=== PATIENT | female | born 1965 | race Hispanic/Latino ===

== ENCOUNTER 2017-09-24 00:57 | Observation (INO) | payer BC ==
[2017-09-24 01:23] LABS: #Eosinphils 0.1 thou/uL (0.0-0.7); #Monocytes 0.3 thou/uL (0.11-0.59); #Neutrophils 2.9 thou/uL (1.40-6.50); %Basophils 0.8 % (0.0-1.0); %Lymphocytes 47.3 % (21.0-51.0); %Monocytes 4.6 % (0.0-10.0); %Neutrophils 45.3 % (42.0-75.0); Hemoglobin 14.5 g/dL (12.0-16.0); Mean Corpuscular HGB CONC 34.7 g/dL (32.0-36.0); Mean Corpuscular Hemoglobin 29.9 pg (27.0-31.0); Mean Corpuscular Volume 86.2 fL (78.0-98.0); Mean Platelet Volume 7.1 fL (7.4-10.4); Platelet Count 276 thou/uL (130-400); RBC Distribution Width 11.9 % (11.5-14.5); Red Blood Cell (RBC) Count 4.84 mill/uL (4.20-5.40); White Blood Cell (WBC) Count 6.4 thou/uL (4.8-10.8)
[2017-09-24 01:39] LABS: ALT (SGPT) 26 U/L (8-55); AST (SGOT) 19 U/L (5-34); Albumin 4.3 g/dL (3.5-5.0); Alkaline Phosphatase 131 U/L (40-150); Anion Gap 15 mmol/L (10-20); BUN (Urea Nitrogen) 12 mg/dL (9.8-20.1); Bilirubin, Total 0.5 mg/dL (0.2-1.2); CK (CPK) 66 U/L (29-168); Calc. Creatinine Clearance 0 mL/min (70-130); Calcium 8.9 mg/dL (7.8-10.44); Carbon Dioxide 23 mmol/L (22-29); Chloride 105 mmol/L (98-107); Estimated GFR-MDRD 75; Globulin 4.1 g/dL (2.4-3.5); Glucose 382 mg/dL (70-105); Protein, Total 8.4 g/dL (6.0-8.3); Sodium 139 mmol/L (136-145)
[2017-09-24 01:43] LABS: Troponin I Less than 0.010 ng/mL (< 0.028)
[2017-09-24] MEDS ORDERED: Nitroglycerin 2% Ointment 1 INCH/1 GM Packet ONE (01:44)
[2017-09-24] MEDS ORDERED: Ondansetron ODT 4 MG TAB SL PRN (03:44)
[2017-09-24] MEDS ORDERED: Sodium Chloride 0.9% 1,000 ML IV SCH (03:44)
[2017-09-24] MEDS ORDERED: Acetaminophen 325 MG TAB PO PRN ×2 (03:44→06:43)
[2017-09-24] MEDS ORDERED: Ondansetron HCl/PF 4 MG/2 ML Vial IVP PRN ×2 (03:44→06:43)
[2017-09-24 04:35] VITALS: BMI 40.3
[2017-09-24 05:57] LABS: Troponin I Less than 0.010 ng/mL (< 0.028)
[2017-09-24] MEDS ORDERED: Ondansetron ODT 4 MG TAB PO PRN (06:43)
[2017-09-24] MEDS ORDERED: Loperamide HCl 2 MG CAP PO PRN (06:43)
[2017-09-24] MEDS ORDERED: HumaLOG 300 UNITS/3 ML VIAL SC PRN ×2 (06:43)
[2017-09-24] MEDS ORDERED: Milk Of Magnesia 30 ML UDCUP PO PRN (06:43)
[2017-09-24] MEDS ORDERED: Mag-Al 1200 mg/1200 mg/30 ML UDCUP PO PRN (06:43)
[2017-09-24] MEDS ORDERED: Zolpidem Tartrate 5 MG TAB PO PRN (06:43)
[2017-09-24] MEDS ORDERED: Senokot 8.6 MG TAB PO PRN (06:43)
[2017-09-24] MEDS ORDERED: HYDROcodone/Acetaminophen 5/325 mg Tablet PO PRN (06:43)
[2017-09-24] MEDS ORDERED: Dextrose 5% in Water 1,000 ML IV PRN (06:43)
[2017-09-24] MEDS ORDERED: Dextrose 50% Abboject 50 ML SYRINGE SLOW IVP PRN (06:43)
[2017-09-24] MEDS ORDERED: Chloraseptic Spray 180 ml Bottle PO PRN (06:45)
[2017-09-24] MEDS ORDERED: Sodium Chloride 0.65% Nasal 44 ML BOT EA NARE PRN (06:45)
[2017-09-24] MEDS ORDERED: Loratadine 10 MG TAB PO PRN (06:45)
[2017-09-24] MEDS ORDERED: Diabetic Tussin 200 MG/10 ML UDCUP PO PRN (06:45)
[2017-09-24] MEDS ORDERED: Artificial Tears 18 DROP/0.9 ML EA EYE PRN (06:45)
[2017-09-24] MEDS ORDERED: hydrALAZINE 20 MG/ML VIAL SLOW IVP PRN (06:45)
[2017-09-24] MEDS ORDERED: Nitroglycerin 0.4 MG TAB (25 Tab Bottle) SL PRN (06:45)
[2017-09-24] MEDS ORDERED: Eucerin (Mineral Oil/Petrolatum,White) 30 gm Jar TOP PRN (06:45)
--- NOTE | 2017-09-24 08:10 | RAD ---
SINGLE VIEW CHEST: Date: 09/24/17 COMPARISON: None. HISTORY: Chest pain that started 3 days ago. FINDINGS: Single view of the chest shows a normal sized cardiomediastinal silhouette. There is no evidence of c onsolidation, mass, or pleural effusion. The bones are unremarkable. IMPRESSION: No evidence of acute cardiopulmonary disease. POS: [facility]
[2017-09-24 08:24] LABS: Cardiac Risk 4.5 (Less than 4.5)
[2017-09-24 08:27] LABS: Troponin I Less than 0.010 ng/mL (< 0.028)
[2017-09-24] MEDS ORDERED: glipiZIDE 10 MG TAB PO SCH (09:00)
[2017-09-24] MEDS ORDERED: INSULIN GLARGINE HUM REC ANLOG 25 UNIT SC SCH (09:00)
[2017-09-24] MEDS ORDERED: metFORMIN 500 MG TAB PO SCH (09:00)
[2017-09-24] MEDS ORDERED: Atorvastatin Calcium 20 MG TAB PO SCH (09:00)
[2017-09-24] MEDS ORDERED: Insulin Glargine 25 UNITS in Pre-Filled Syringe 1 EACH SC SCH (09:00)
[2017-09-24] MEDS ORDERED: Famotidine 20 MG TAB PO SCH (09:00)
[2017-09-24] MEDS ORDERED: Aspirin 325 MG TAB PO SCH (09:00)
[2017-09-24 11:45] VITALS: BP 137/63; TEMP 98.5
--- NOTE | 2017-09-24 11:48 | SS ---
DATE OF ADMISSION: 09/24/2017 at 03:29 a.m. PRIMARY CARE PHYSICIAN: Iman Holley, Nurse Practitioner. REASON FOR ADMISSION: Chest pain. HISTORY OF PRESENT ILLNESS: A 52-year-old female who has underlying history of diabetes type 2, hypertension, hypothyroidism, dyslipidemia as well as obesity who presented to emergency room with complaint of chest pain. She has chest pain for the last 2-3 days, intermittent. She describes substernal chest pain associated with shortness of breath. She denies any nausea, vomiting , diaphoresis, but she reports that sometimes she feels discomfort in her neck as well as in the left shoulder. She described intensity of pain about 9/10 when it started, lasted for a few minutes and subsided by itself. She has not noticed any relation of chest discomfort with food, respiration or activity. She denies any palpitation, dizziness, syncope. She denies any orthopnea, PND or leg swelling. The patient was thinking maybe acid reflux and she was taking Tums without any relief. She denies any exertion related chest discomfort. She denies any fever or chills. She denies any cough. She denies any UTI symptoms. She denies any constipation, diarrhea, melena or hematochezia. She never had any cardiac workup. She never had this type of chest pain in the past. REVIEW OF SYSTEMS: The following complete review of systems was negative, unless otherwise mentioned in the HPI or below: Constitutional: Weight loss or gain, ability to conduct usual activities. Skin: Rash, itching. Eyes: Double vision, pain. ENT/Mouth: Nose bleeding, neck stiffness, pain, tenderness. Cardiovascular: Palpitations, dyspnea on exertion, orthopnea. Respiratory: Shortness of breath, wheezing, cough, hemoptysis, fever or night sweats. Gastrointestinal: Poor appetite, abdominal pain, heartburn, nausea, vomiting, constipation, or diarrhea. Genitourinary: Urgency, frequency, dysuria, nocturia. Musculoskeletal: Pain, swelling. Neurologic/Psychiatric: Anxiety, depression. Allergy/Immunologic: Skin rash, bleeding tendency. Please see my HPI for pertinent positive and negative. All other review of systems reviewed and negative except as mentioned in the HPI. PAST MEDICAL HISTORY: Diabetes type 2, hypertension, dyslipidemia, hypothyroidism, morbid obesity. PAST SURGICAL HISTORY: x2 and left eye surgery. PAST PSYCHIATRIC HISTORY: Reviewed and negative. SOCIAL HISTORY: The patient lives at home with the family. No history of tobacco, alcohol or illicit drug abuse. FAMILY HISTORY: No strong family history of premature coronary artery disease, stroke or cancer. ALLERGIES: No known drug allergy. CURRENT HOME MEDICATIONS: Lipitor 20 mg p.o. daily, Accupril 5 mg p.o. daily, glipizide 10 mg twice daily, levothyroxine 25 mcg p.o. daily, Lantus 25 units subcu b.i.d., metformin 1000 mg p.o. b.i.d. EMERGENCY ROOM COURSE: Patient is given nitro patch, aspirin 324 mg. PHYSICAL EXAMINATION: VITAL SIGNS: On arrival, blood pressure 192/87, pulse 87, respiratory rate 18, temperature 98.3, saturation 98% on room air, weight 83.9 kilograms. GENERAL: The patient is currently alert, oriented, no obvious acute distress. HEAD: Normocephalic, atraumatic. EYES: Pupils round and reactive to light. Extraocular muscle intact. ENT: Oropharynx within normal limits. Moist mucous membranes, no oral lesion, no pharyngeal erythema, no exudate. NECK: Supple, no JVD, no thyromegaly, no carotid bruit. No jugular venous distention. LUNGS: Clear to auscultation without any rhonchi or rales. CARDIAC: S1, S2 regular. No murmur, no gallop, no rub. ABDOMEN: Soft, bowel sounds present, nontender, nondistended. No organomegaly , no mass, no suprapubic tenderness. BACK: Examination is unremarkable. No CVA tenderness. EXTREMITIES: Upper extremity within normal limits. Good pulsation. Lower extremity, no edema. Good peripheral pulsation. No calf tenderness. SKIN: No skin rash. HEMATOLOGICAL SYSTEM: No lymphadenopathy. PSYCHIATRIC: Normal affect. NEUROLOGIC: Nonfocal examination. IMAGING DATA AND SIGNIFICANT LABORATORY DATA: 1. EKG showing normal sinus rhythm within normal limits. 2. Chest x-ray based on my review, no acute cardiopulmonary process. 3. CBC: WBC 6.4, hemoglobin 14.5, platelet 276. D-dimer less than 0.27. 4. BMP: Sodium 139, potassium 4.0, chloride 105, carbon dioxide 23, anion gap 15, BUN 12, creatinine 0.81, glucose 382, calcium 8.9. 5. LFT: AST 19, ALT 26, alkaline phosphatase 131, albumin 4.3. Cardiac enzymes negative x3. Triglyceride 145, cholesterol 205, LDL 130, HDL 46, BNP 12.7. ASSESSMENT AND PLAN/IMPRESSION: 1. Acute and recurrent chest pain. Patient's chest pain description is atypical based on her risk factor including diabetes, hypertension, dyslipidemia , hypothyroidism, obesity, and age. She has mild to moderate probability of having coronary artery disease. Her cardiac enzymes are already negative x3. Her EKG was unremarkable. Her D-dimer is negative. At this point, we have ruled out acute coronary syndrome, but patient will need a stress test to rule out underlying ischemia. If stress test is negative, then the patient is medically stable for discharge with outpatient followup. The patient is advised to continue aspirin 325 mg p.o. daily. We will continue nitropatch q.8 hourly. Diet reeducation given. Healthy lifestyle measures discussed with the patient. 2. Morbid obesity with body mass index 40. Dietary education given. Weight loss education given. Healthy lifestyle measures discussed with the patient. 3. Dyslipidemia. Continue Lipitor 20 mg p.o. at bedtime. Lipid profile is not at target. 4. Diabetes type 2, not well controlled. Continue glipizide 10 mg p.o. b.i.d. , Lantus insulin 25 units subcu b.i.d., metformin 1000 mg p.o. b.i.d. Dietary education given. Diabetic diet will be given after stress test. 5. Hypothyroidism. We will continue Synthroid 25 mcg p.o. daily. The patient will need outpatient followup with primary care physician to increase the dose of levothyroxine. 6. Hypertension, not well controlled due to noncompliance with the treatment. Continue Accupril 5 mg p.o. daily. Patient will follow up with primary care physician. The patient is instructed to take extra Accupril if blood pressure is high at home and monitor blood pressure at home periodically. 7. Deep venous thrombosis prophylaxis not needed because we are expecting discharge today. 8. Gastrointestinal prophylaxis, Pepcid 20 mg p.o. b.i.d. CODE STATUS: Patient is FULL CODE. Disposition plan -home DATE OF ADMISSION: 09/24/2017 at 03:29 a.m. DATE OF DISCHARGE: 09/24/17, 12 pm DISCHARGE DISPOSITION: Home. PRIMARY DISCHARGE DIAGNOSIS: Chest pain, ruled out acute coronary syndrome. SECONDARY DISCHARGE DIAGNOSES: Diabetes type 2, hypertension, dyslipidemia, hypothyroidism, morbid obesity with body mass index 40. PRIMARY PROCEDURES/OPERATIONS: None. RADIOLOGICAL INVESTIGATION: Chest x-ray normal. Stress test -negative SIGNIFICANT LABORATORY DATA: Please see my above laboratory finding. DISCHARGE MEDICATIONS: Aspirin 325 mg p.o. daily, Lipitor 20 mg p.o. daily, vitamin D3 1000 units p.o. daily, glipizide 10 mg p.o. b.i.d., Lantus 25 units subcu b.i.d., levothyroxine 25 mcg p.o. daily, metformin 1000 mg p.o. b.i.d., Accupril 5 mg p.o. daily. CONTRAINDICATIONS: None. CODE STATUS: FULL CODE. INPATIENT CONSULTANTS: None. ALLERGIES: No known drug allergy. DISCHARGE PLAN: Post hospital, patient will follow up with primary care physician in 1 week. Primary care physician will decide about increasing blood pressure medication as well as thyroid medication. HOSPITAL COURSE: Please see my HPI. This patient was admitted for chest pain. Her chest pain description was atypical for angina. She had several risk factors for coronary artery disease and that is why we kept this patient in the hospital for observation. She had negative cardiac enzymes. She underwent stress test. If stress test is negative, then we will consider discharging her home later on today. We added aspirin on her regimen as well as we also added Pepcid on her regimen. Her TSH is not well controlled, but she is given instruction to be compliant with medical therapy. stress test is negative, discussed result with pt. The patient is admitted and discharged on the same day. ANUSHKA
--- NOTE | 2017-09-24 12:04 | NM ---
CARDIAC SPECT: CLINICAL HISTORY: 52-year-old female with chest pain. TECHNIQUE: A stress-only myocardial perfusion scan was performed following the intravenous administration of 30 mCi technetium-99m sestamibi. Exercise stress was monitored and interpreted by Beverly Nichole. FINDINGS: Homogeneous tracer distribution is seen in the myocardial segments on the post stress images. GATED SPECT LVEF: 82%. WALL MOTION EXAM: Normal. IMPRESSION: Normal post stress myocardial perfusion scan. POS: [facility]
[2017-09-24] MEDS ORDERED: Nitroglycerin 2% Ointment 1 INCH/1 GM Packet TOP SCH (14:00)
[2017-09-25] MEDS ORDERED: Levothyroxine Sodium 25 MCG TAB PO SCH (06:00)
== END 2017-09-24 13:32 | disposition home or self-care (01) ==
LOC: ERS 00:57 → 2SW 03:28
PROVIDERS: ADMIT Hospitalist; ATTEND Hospitalist
DX: R07.2 Precordial pain (principal); E11.9 Type 2 diabetes mellitus without complications; I10 Essential (primary) hypertension; E03.9 Hypothyroidism, unspecified; E78.5 Hyperlipidemia, unspecified; E66.01 Morbid (severe) obesity due to excess calories; Z68.41 Body mass index [BMI] 40.0-44.9, adult; Z79.4 Long term (current) use of insulin; Z79.899 Other long term (current) drug therapy
CPT/HCPCS: 36415; 36416; 71045; 78452; 80053; 80061; 82550; 82553; 83880; 84443; 84484; 85025; 85379; 93005; 93017; 94760; 96360; 96361; A9500; G0378

== ENCOUNTER 2018-10-22 08:53 | Outpatient (CLI) | payer BC ==
--- NOTE | 2018-10-22 09:55 | MMO ---
Bilateral MAMMO Bilat Screen [facility]. CLINICAL HISTORY: Patient is 53 years old and is seen for screening. The patient has no family history of breast cancer. The patient has no personal history of cancer. VIEWS: The views performed were: bilateral craniocaudal with tomosynthesis and bilateral mediolateral oblique with tomosynthesis. FILMS COMPARED: The present examination has been compared to prior imaging studies performed at [facility] on 09/13/2003, 09/02/2008, 07/04/2011 and 01/16/2016. MAMMOGRAM FINDINGS: There are scattered fibroglandular densities. There are vascular calcifications seen in both breasts. There are no suspicious masses, suspicious calcifications, or new areas of architectural distortion. IMPRESSION: A ROUTINE FOLLOW-UP MAMMOGRAM IN 1 YEAR IS RECOMMENDED. THE RESULTS OF THIS EXAM WERE SENT TO THE PATIENT. ACR BI-RADS Category 2 - Benign finding MAMMOGRAPHY NOTE: 1. A negative mammogram report should not delay a biopsy if a dominant of clinically suspicious mass is present. 2. Approximately 10% to 15% of breast cancers are not detected by mammography. 3. Adenosis and dense breasts may obscure an underlying neoplasm. Reported by: TOM GARCIA MD Electonically Signed: [id number]
== END 2018-10-22 08:54 | disposition home or self-care (01) ==
LOC: BICMAMMO 08:53
PROVIDERS: ATTEND Nurse Practitioner Family
DX: Z12.31 Encounter for screening mammogram for malignant neoplasm of breast (principal)
CPT/HCPCS: 77063; 77067

== ENCOUNTER 2019-10-26 08:56 | Outpatient (CLI) | payer BC ==
--- NOTE | 2019-10-26 09:29 | MMO ---
Bilateral MAMMO Bilat Screen [facility]. CLINICAL HISTORY: Patient is 54 years old and is seen for screening. The patient has no family history of breast cancer. The patient has no personal history of cancer. VIEWS: The views performed were: bilateral craniocaudal with tomosynthesis and bilateral mediolateral oblique with tomosynthesis. FILMS COMPARED: The present examination has been compared to prior imaging studies performed at [facility] on 09/02/2008, 07/04/2011, 01/16/2016 and 10/22/2018. This study has been interpreted with the assistance of computer-aided detection. MAMMOGRAM FINDINGS: There are scattered fibroglandular densities. There are vascular calcifications seen in both breasts. There are no suspicious masses, suspicious calcifications, or new areas of architectural distortion. IMPRESSION: A ROUTINE FOLLOW-UP MAMMOGRAM IN 1 YEAR IS RECOMMENDED. THE RESULTS OF THIS EXAM WERE SENT TO THE PATIENT. ACR BI-RADS Category 2 - Benign finding MAMMOGRAPHY NOTE: 1. A negative mammogram report should not delay a biopsy if a dominant of clinically suspicious mass is present. 2. Approximately 10% to 15% of breast cancers are not detected by mammography. 3. Adenosis and dense breasts may obscure an underlying neoplasm. Reported by: JESSICA INFANTE MD Electonically Signed: [id number]
== END 2019-10-26 08:57 | disposition home or self-care (01) ==
LOC: BICMAMMO 08:56
PROVIDERS: ATTEND Nurse Practitioner Family
DX: Z12.31 Encounter for screening mammogram for malignant neoplasm of breast (principal)
CPT/HCPCS: 77063; 77067

== ENCOUNTER 2023-04-28 15:10 | Outpatient (CLI) | payer BC | END 2023-04-28 15:11 | disposition home or self-care (01) | LOC: BICMAMMO 15:10 | PROVIDERS: ATTEND Internal Medicine | DX: Z12.31 Encounter for screening mammogram for malignant neoplasm of breast (principal) | CPT/HCPCS: 77063; 77067 ==